=== PATIENT | female | born 1935 | race Caucasian/White ===

== ENCOUNTER → 2016-11-25 | Outpatient (CLI) | payer OTHER ==
--- NOTE | 2016-11-25 12:04 | DX ---
Chest, PA and Lateral History: Hypoxemia Comparison: February 22, 2013 Findings: There is a chronic or recurrent enlarged hiatal hernia present behind the heart. Lungs are clear, without infiltrate or consolidation. Heart size is at the upper limits of normal. The pulmonar y vascularity is normal. There is stable atherosclerotic calcification of the normal sized thoracic a nd abdominal aorta. There is no adenopathy or new mass. There is no pleural effusion or pneumothorax. There is a chronic prominent kyphosis with stable mild compressions in the mid thoracic spine. No ne w compressions have developed. Right upper quadrant postcholecystectomy and right chest wall surgical clips are stable. Impression: 1. COPD 2. Enlarged hiatal hernia since 2012 3. No pneumonia or congestive failure.
== END ==
LOC: CIMAGING 10:05
PROVIDERS: ATTEND Family Medicine
DX: R09.02 Hypoxemia (principal); J44.9 Chronic obstructive pulmonary disease, unspecified; K44.9 Diaphragmatic hernia without obstruction or gangrene
CPT/HCPCS: 71020-PO